=== PATIENT | male | born 1990 | race Caucasian/White ===

== ENCOUNTER 2016-05-04 00:19 | Emergency (ER) | payer OTHER ==
[~2016-05-04] VITALS: Ht 180.3 cm; Wt 99.8 kg
[~2016-05-04 00:19] MED LIST: AGM875T PO; AMOX500C2 PO; BENZ100C18 PO; CIPR500T78 PO; HYDR-1231 PO; HYDR1TAB PO; HYDR1TAB8 OP; KETO-22 PO; ONDA-42 SL; PRM25T PO; TMSL.4C PO
--- OUTSIDE RECORDS SUMMARY | 2016-05-04 00:30 | XMS REPORT | Continuity of Care Document ---
Author Author [facility] Organization [facility] Address Unknown Phone Unavailable Care Team Providers Care Inside Account Representative Name Role Phone [facility] OF PCP Insurance Providers Payer Name Policy Number Subscriber Name Relationship [facility] [id number] Alicja Hamlin 18 Self / Same As Patient [facility] [id number] Jordan Collazo G8 Step Father Advance Directives Directive Response Recorded Date/Time Advance Directives No 10/23/14 10:21am Resuscitation Status Full Code 10/23/14 10:21am Problems Medical Problems Problem Onset Date Status Dental caries Unknown Active Medications Medication Dose Route Sig Days/Qty Instructions Order Date Discontinued Date Status Ketorolac Tromethamine 10 Mg PO EVERY 8HRS 14 Qty 07/26/10 04/03/12 Discontinued Promethazine HCl 1 Tab PO FOUR TIMES DAILY PRN 10 Qty 05/08/11 Discontinued Amoxicillin/Clavulanate Potassium 1 Tab PO TWICE A DAY 20 Qty FOR INFECTION 02/06/12 04/03/12 Discontinued Benzonatate 1 - 2 Each PO Q 4 - 6 HR PRN 30 Qty 02/06/12 04/03/12 Discontinued Acetaminophen/Hydrocodone Bitart 1 - 2 Each PO Q4HR PRN 14 Qty 08/13/13 Discontinued Ciprofloxacin HCl 500 Mg PO TWICE A DAY 20 Qty 08/13/13 08/13/13 Discontinued Tamsulosin HCl 0.4 Mg PO DAILY 10 Qty 08/13/13 08/13/13 Discontinued Hydrocodone Bitartrate/Ibuprofen 1-2 Each OP Q4-6HR PRN PAIN 20 Qty FOR PAIN 08/13/13 08/13/13 Discontinued Ondansetron Hcl 4 Mg SL EVERY 4HRS 5 Qty 08/13/13 08/13/13 Discontinued Ciprofloxacin HCl 500 Mg PO TWICE A DAY 20 Qty 08/13/13 10/23/14 Discontinued Tamsulosin HCl 0.4 Mg PO DAILY 10 Qty 08/13/13 10/23/14 Discontinued Hydrocodone Bitartrate/Ibuprofen 1-2 Each OP Q4-6HR PRN PAIN 20 Qty FOR PAIN 08/13/13 10/23/14 Discontinued Ondansetron Hcl 4 Mg SL EVERY 4HRS 5 Qty 08/13/13 10/23/14 Discontinued Amoxicillin 1 Each PO THREE TIMES A DAY 15 Qty 10/23/14 Active Hydrocodone Bit/Acetaminophen 1-2 Tab PO EVERY 6 HOURS PRN PAIN 15 Qty 10/23/14 Active Social History Social History Problem Response Recorded Date/Time Alcohol Use Occasionally Uses 10/23/2014 10:21am Recreational Drug Use No 10/23/2014 10:21am Recent Foreign Travel No 10/23/2014 10:19am Recent Infectious Disease Exposure No 10/23/2014 10:19am Smoking Status Current Someday Smoker 10/23/2014 10:21am Query Response Start Date Stop Date Smoking Status Current Someday Smoker Hospital Discharge Instructions No hospital discharge instructions. Plan of Care No plan of care. Functional Status No functional status results. Allergies, Adverse Reactions, Alerts Allergen Type Severity Reaction Status Last Updated No Known Drug Allergies Active 07/25/10 Immunizations No immunization records. Vital Signs Acute Vital Signs Vital Response Date/Time Temperature (Fahrenheit) 98 degrees F (97.6 - 99.5) Temperature (Calculated Celsius) 36.6696 degrees C (36.4 - 37.5) Pulse Rate (adult) 58 bpm (60 - 90) Respiratory Rate 16 bpm (12 - 24) O2 Sat by Pulse Oximetry 99 % (88 - 100) Blood Pressure 110/89 mm Hg Blood Pressure Mean 96 mm Hg Pain Pain Intensity 8 Height (Feet) 5 feet Height (Inches) 11 inches Height (Calculated Centimeters) 180.681564 cm Weight (Pounds) 210 pounds Weight (Calculated Kilograms) 95.296553 kilograms Calculated BMI 29.29 Results No known relevant diagnostic tests, laboratory data and/or discharge summary. Procedures No known history of procedures. Encounters Encounter Location Date/Time Departed Emergency Room [facility] 10/23/14 10:15am Recent Diagnosis
[2016-05-04] MEDS ORDERED: GUAI600T43 PO (00:52)
[2016-05-04] MEDS ORDERED: AMOX875T2 PO (00:52)
[2016-05-04] MEDS ORDERED: IBUP-1773 PO (00:52)
[2016-05-04] MEDS ORDERED: NS IV 1000 ML 1,000 ML IV ONE (01:27)
[2016-05-04] MEDS ORDERED: cefTRIAXone INJECTION 1,000 MG in NS (IVPB) 50 ML IV ONE (01:30)
[2016-05-04] MEDS ORDERED: LIDOCAINE 2% VISCOUS 15 ML UDC PO ONE (01:30)
[2016-05-04] MEDS ORDERED: ANTACID SUSP 30 ML UDC (MYLANTA) PO ONE (01:30)
[2016-05-04] MEDS ORDERED: KETOROLAC 30 MG/ML VIAL IVP ONE (01:30)
--- NOTE | 2016-05-04 02:16 | ED General ---
General Chief Complaint: Oral/Throat Problems Stated Complaint: SORE THROAT,SWOLLEN,CHEST HURTS,DIZZY,COUGHING Nursing Triage Note: pt reports throat pain since saturday. Was seen at [facility] on saturday and prescribed amoxicillin, mucinex, and ibuprofen. Pt reports no improvement. Nursing Sepsis Screen: No Definite Risk Source of Information: Patient Exam Limitations: No Limitations History of Present Illness Time Seen by Provider: 00:22 Initial Comments This 25-year-old man presents to the emergency room with severe pharyngitis, pain in the chest with eating, fever, chills, diarrhea, and cough since Saturday. He was seen at the ER in [place] on Saturday and prescribed amoxicillin for his pharyngitis. He reports strep and flu swabs were negative at that time. He has been taking his amoxicillin without improvement. Allergies and Home Medications Allergies Coded Allergies: No Known Drug Allergies (Unverified , 07/25/10) Home Medications Amoxicillin 875 Mg Tablet 875 MG PO BID (Reported) Guaifenesin 600 Mg Tab.er.12h 600 MG PO BID (Reported) Ibuprofen 600 Mg Tablet 600 MG PO Q6H PRN PRN PAIN (Reported) Constitutional: see HPI EENTM: see HPI Respiratory: see HPI Cardiovascular: no symptoms reported Gastrointestinal: see HPI Genitourinary: no symptoms reported Musculoskeletal: no symptoms reported Skin: no symptoms reported Psychiatric/Neurological: No Symptoms Reported Hematologic/Lymphatic: No Symptoms Reported Past Encyszt-Ugmsru-Wvkqds Hx Patient Social History Alcohol Use: Denies Use Recreational Drug Use: No Smoking Status: Never a Smoker Recent Foreign Travel: No Contact w/Someone Who Travel: No Recent Infectious Disease Expo: No Recent Hopitalizations: No Immunizations Up To Date Date of Pneumonia Vaccine: May 02, 2008 Seasonal Allergies Seasonal Allergies: No Surgeries HX Surgeries: No Respiratory Hx Respiratory Disorders: No Cardiovascular Hx Cardiac Disorders: No Neurological Hx Neurological Disorders: No Reproductive System Hx Reproductive Disorders: No Genitourinary Hx Genitourinary Disorders: No Gastrointestinal Hx Gastrointestinal Disorders: No Musculoskeletal Hx Musculoskeletal Disorders: No Endocrine Hx Endocrine Disorders: No HEENT HX ENT Disorders: No Cancer Hx Cancer: No Psychosocial Hx Psychiatric Problems: No Integumentary HX Skin/Integumentary Disorder: No Blood Transfusions Hx Blood Disorders: No Family Medical History Significant Family History: Diabetes Physical Exam Vital Signs Vital Sign - Last 12Hours 05/04/16 00:40 Temp 99.1 Pulse 95 Resp 16 B/P 128/94 Pulse Ox 97 Capillary Refill : Less Than 3 Seconds General Appearance: WD/WN Other (ill appearing) HEENT: PERRL/EOMI TMs Normal Normal ENT Inspection Other (marked tonsillar swelling, erythema, and white patches.) Neck: Normal Inspection Supple Respiratory: Lungs Clear Normal Breath Sounds No Accessory Muscle Use No Respiratory Distress Cardiovascular: Regular Rate, Rhythm No Edema No Murmur Gastrointestinal: Normal Bowel Sounds Non Tender Soft Extremity: Normal Inspection No Pedal Edema Neurologic/Psychiatric: Alert Oriented x3 No Motor/Sensory Deficits Normal Mood/Affect machinist set up II-XII Norm as Tested Skin: Normal Color Warm/Dry Progress/Results/Core Measures Results/Orders Lab Results Laboratory Tests Test 05/04/16 00:48 05/04/16 00:55 Range/Units Group A Streptococcus Screen NEGATIVE NEGATIVE Monoscreen NEGATIVE NEGATIVE Micro Results Microbiology 05/04/16 Influenza Types A,B Antigen (DEVAN) - Final, Complete My Orders Orders-TIFFANIE GIBSON MD Rapid Strep A Screen (05/04/16 00:22) Influenza A And B Antigens (05/04/16 00:22) Chest Pa/Lat (2 View) (05/04/16 00:41) Monotest (05/04/16 00:49) Saline Lock/Iv-Start (05/04/16 01:27) Ns Iv 1000 Ml (Sodium Chloride 0.9%) (05/04/16 01:27) Ketorolac Injection (Toradol Injection) (05/04/16 01:30) Ceftriaxone Injection (Rocephin Injectio (05/04/16 01:30) Lidocaine 2% Viscous 15 Ml (Xylocaine Vi (05/04/16 01:30) Antacid Suspension (Mylanta Suspension (05/04/16 01:30) Medications Given in ED Current Medications Medications Dose Ordered Sig/Cory Route Start Time Stop Time Status Last Admin Dose Admin Al Hydrox/Mg Hydrox/Simethicone 30 ml ONCE ONCE PO 05/04/16 01:30 05/04/16 01:31 DC 05/04/16 01:47 30 ML Ceftriaxone Sodium/Sodium Chloride 50 ml @ 100 mls/hr ONCE ONCE IV 05/04/16 01:30 05/04/16 01:59 DC 05/04/16 01:48 100 MLS/HR Ketorolac Tromethamine 30 mg 30 mg ONCE ONCE IVP 05/04/16 01:30 05/04/16 01:31 DC 05/04/16 01:48 30 MG Lidocaine HCl 15 ml ONCE ONCE PO 05/04/16 01:30 05/04/16 01:31 DC 05/04/16 01:48 15 ML Sodium Chloride 1,000 ml @ 0 mls/hr Q0M ONCE IV 05/04/16 01:27 05/04/16 01:30 DC 05/04/16 01:48 0 MLS/HR Vital Signs/I&O Vital Sign - Last 12Hours 05/04/16 05/04/16 00:40 02:37 Temp 99.1 Pulse 95 90 Resp 16 16 B/P 128/94 Pulse Ox 97 98 Blood Pressure Mean: 105 Progress Note : Progress Note Workup was unremarkable. Patient was offered symptomatic treatment with IV fluids, Toradol, and GI cocktail for throat anesthetic. He was grateful for the offered and accepted. A gram Rocephin was also given as his exam findings were suspicious for strep and he wished to treat as aggressively as possible. Diagnostic Imaging Diagonstic Imaging: Xray Plain Films/CT/US/NM/MRI: chest Comments chest x-ray viewed by me. Report not yet available. No acute abnormalities appreciated. Departure Impression Impression: Primary Impression: Acute tonsillitis Qualified Code: J03.90 - Acute tonsillitis, unspecified Additional Impressions: Cough Chest discomfort Disposition: HOME, SELF-CARE Condition: Improved Departure-Patient Inst. Decision time for Depature: 01:45 Referrals: [facility] (PCP/Family) Primary Care Physician Patient Instructions: Sore Throat in Adults Add. Discharge Instructions: Drink plenty of clear liquids. Complete your antibiotics as previously prescribed. Follow-up with your primary care provider on Saturday if not improved. Return to the emergency room or the urgent care clinic at [facility] if symptoms worsen. You may sip on the GI cocktail at home to help numb your sore throat. You may take ibuprofen up to 600 mg every 6 hours as needed for pain. Add Tylenol (acetaminophen) 1000 mg every 6 hours as needed for additional pain relief. Sanitize or replace toothbrush or any other oral instruments in 3 or 4 days. Follow-up on your final throat culture results with [facility] on Saturday. All discharge instructions reviewed with patient and/or family. Voiced understanding. Work/School Note: Work Release Form Date Seen in the Emergency Department: May 04, 2016 Return to Work: May 07, 2016 Restrictions: Return-No Fever (24hrs) TIFFANIE GIBSON MD May 04, 2016 02:16
[2016-05-04 02:37] VITALS: BP 124/82
--- NOTE | 2016-05-04 06:49 | Diagnostic Imaging Report ---
INDICATION: Cough and congestion for five days, sore throat. DISCUSSION: 2 views of the chest were obtained. No comparison. The heart and lungs are normal. No osseous abnormality. IMPRESSION: Normal chest. Dictated by: Dictated on workstation # [id number]
== END 2016-05-04 02:37 | disposition home or self-care (01) ==
LOC: EDUNIT# 00:19 → ER 00:25
DX: J03.90 Acute tonsillitis, unspecified (principal); R07.89 Other chest pain; R42 Dizziness and giddiness; R05 Cough
CPT/HCPCS: 36415; 71020; 86308; 87430; 87804; 96361; 96365; 96375